=== PATIENT | female | born 1985 | race American Indian/Alaskan Native ===

== ENCOUNTER 2020-11-18 14:37 | Emergency (ER) | payer OTHER ==
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
[2020-11-18 15:44] LABS: Basophils % (Auto) 0.2 % (0.0-1.8); Eosinophils % (Auto) 0.3 % (0.0-4.3); Hematocrit 37.6 % (30.3-42.9); Hemoglobin 12.1 gm/dl (10.1-14.3); Lymphocytes # (Auto) 1.3 K/mm3 (1.2-5.4); Lymphocytes % (Auto) 13.4 % (13.4-35.0); Mean Corpuscular HGB Conc 32 % (30-34); Mean Corpuscular Volume 74 fl (79-97); Monocytes # (Auto) 0.6 K/mm3 (0.0-0.8); Monocytes % (Auto) 5.9 % (0.0-7.3); Platelet Count 254 K/mm3 (140-440); Red Blood Count 5.07 M/mm3 (3.65-5.03)
[2020-11-18 15:52] LABS: Alanine Aminotransferase 12 units/L (7-56); Albumin 3.8 g/dL (3.9-5); BUN/Creatinine Ratio 11; Blood Urea Nitrogen 9 mg/dL (7-17); Calcium 8.4 mg/dL (8.4-10.2); Hemolysis Index 4
[2020-11-18 15:55] LABS: Red Cell Distribution Width 21.5 % (13.2-15.2)
[2020-11-18] MEDS: oxyCODONE /ACETAMINOPHEN 5-325MG TAB PO ONE ×2 (16:26→16:36)
[2020-11-18] MEDS: IBUPROFEN 800 MG TAB PO ONE ×3 (16:26→16:36)
--- NOTE | 2020-11-18 16:52 | Cat Scan Report ---
CT head/brain wo con INDICATION: first time seizure. TECHNIQUE: Routine CT head. All CT scans at this location are performed using CT dose reduction for A MONY by means of automated exposure control. COMPARISON: None. FINDINGS: Intracranial: [place]-white matter differentiation is maintained. No intracranial hemorrhage. No extra a xial collection. No hydrocephalus. No herniation. Sinuses: Paranasal sinuses and mastoid air cells are essentially clear. Orbits: Globes are intact. Calvarium: No acute fracture. IMPRESSION: 1. No acute intracranial abnormality. Signer Name: Ernesto Hernandez MD Signed: 11/18/2020 4:48 PM Workstation Name: [id number]
[2020-11-18 16:59] VITALS: BP 148/103
== END 2020-11-18 18:28 | disposition home or self-care (01) ==
LOC: ED 14:37
DX: R56.9 Unspecified convulsions (principal); F19.20 Other psychoactive substance dependence, uncomplicated; F10.20 Alcohol dependence, uncomplicated; E83.39 Other disorders of phosphorus metabolism; Z98.890 Other specified postprocedural states
CPT/HCPCS: 36415; 70450; 80053; 83735; 84100; 84703; 85025; 99284